=== PATIENT | female | born 1965 | race Caucasian/White ===

== ENCOUNTER 2021-07-07 19:21 | Observation (INO) ==
[2021-07-07] MEDS ORDERED: 0.9 % Sodium Chloride 1,000 ML IVC ONE (22:55)
[2021-07-07] MEDS ORDERED: cefTRIAXone 1,000 MG in 0.9 % Sodium Chloride Mini Bag 100 ML IVPB ONE (22:57)
[2021-07-07] MEDS ORDERED: Isovue-370 500 ML BOTTLE IVP ONE (23:13)
[2021-07-07 23:28] LABS: Bacteria,Urine Few per hpf (None-Few); Bilirubin,Urine Negative (Negative); Blood,Urine Negative (Negative); Clarity,Urine Clear (Clear); Color,Urine Light-Yellow (Yellow); Glucose,Urine (UA) Normal (Normal); Ketones,Urine Negative (Negative); Leukocyte Esterase,Urine Small (Negative); Mucus,Urine Few per lpf (None-Few); Nitrite,Urine Negative (Negative); Protein,Urine Negative (Neg-Trace); RBC,Urine 0-3 per hpf (0-3); Specific Gravity,Urine 1.007 (1.010-1.025); Squamous Epithelial Cell,Urine Few per hpf (None-Few); Urobilinogen,Urine Normal (Normal)
[2021-07-08 01:17] LABS: Basophils % 0.1 %; Eosinophils % 0.3 %; Hematocrit 27.4 % (35.3-44.9); Hemoglobin 8.9 g/dL (11.5-15.4); Immature Granulocytes % 0.8 % (0-4); Lymphocytes # 0.3 K/mcL (0.6-4.6); Lymphocytes % 4.2 %; Mean Corpuscular HGB Conc 32.5 g/dL (31.6-35.5); Mean Corpuscular Hemoglobin 32.8 pg (28.0-33.3); Mean Corpuscular Volume 101.1 fL (83.0-100.0); Mean Platelet Volume 11.6 fL (9.4-12.4); Monocytes # 0.5 K/mcL (0.0-1.3); Monocytes % 6.4 %; Neutrophils # 6.9 K/mcL (1.6-8.9); Platelet Count 141 K/mcL (140-400); Red Blood Count 2.71 M/mcL (3.82-4.97); Red Cell Distribution Width 14.3 % (11.5-14.5); Segmented Neutrophils % 88.2 %; White Blood Count 7.8 K/mcL (4.3-11.1)
[2021-07-08 01:23] LABS: INR 1.1
[2021-07-08 01:44] LABS: Alanine Aminotransferase 13 Units/L (7-52); Albumin 3.4 g/dL (3.5-5.7); Albumin/Globulin Ratio 1.4 (1.1-2.2); Alkaline Phosphatase 82 Units/L (34-104); Aspartate Amino Transferase 17 Units/L (13-39); BUN/Creatinine Ratio 15 (6-26); Bilirubin,Direct 0.2 mg/dL (0.0-0.2); Bilirubin,Indirect 0.1 mg/dL (0.0-1.0); Bilirubin,Total 0.3 mg/dL (0.3-1.0); Blood Urea Nitrogen 9 mg/dL (6-20); Calcium 8.9 mg/dL (8.6-10.3); Carbon Dioxide 26 mEq/L (23-29); Chloride 102 mEq/L (98-107); Globulin 2.5 g/dL (2.4-3.5); Glucose 94 mg/dL (70-105); Magnesium 1.8 mg/dL (1.6-2.6); Osmolality,Calculated 282 (280-300); Phosphorous 3.6 mg/dL (2.7-4.5); Potassium 3.3 mEq/L (3.5-5.1); Sodium 137 mEq/L (136-145); Total Protein 5.9 g/dL (6.4-8.9); Troponin I < 0.03 ng/mL (< 0.04); eGFR For African Americans > 60 (> 60); eGFR For Non-African Americans > 60 (> 60)
[2021-07-08 01:56] LABS: VBG HCO3 27 mEq/L (21-27); VBG PCO2 45 mmHg (41-51); VBG PH 7.38 pH Units (7.32-7.42); VBG PO2 61 mmHg (25-50)
[2021-07-08] MEDS ORDERED: Melatonin 3 MG TABLET PO PRN (04:34)
[2021-07-08] MEDS ORDERED: *HR* OxyCODONE Immed Rel 5 MG TABLET PO PRN ×2 (04:34→16:38)
[2021-07-08] MEDS ORDERED: Acetaminophen 325 MG TABLET PO PRN (04:34)
[2021-07-08] MEDS ORDERED: Ondansetron ODT 4 MG TAB.RAPDIS SL PRN (04:34)
[2021-07-08] MEDS ORDERED: Naloxone 0.4 MG/ML INJ IVP PRN (04:34)
[2021-07-08] MEDS ORDERED: Nicotine 14 MG PATCH.TD24 TD PRN (05:30)
[2021-07-08 06:20] LABS: Iron < 10 mcg/dL (50-170); Transferrin 144 mg/dL (203-362)
[2021-07-08] MEDS: *HR* HYDROcodone/Acet 5/325 mg TABLET PO PRN ×2 (06:37→14:12)
[2021-07-08 07:00] LABS: Folate 14.5 ng/mL (3.0-16.0)
[2021-07-08] MEDS: Piperacillin/Tazobactam 3.375 GM in 0.9 % Sodium Chloride Mini Bag 100 ML IVPB SCH ×2 (07:59→15:51)
[2021-07-08] MEDS ORDERED: *HR* Heparin 5,000 UNIT/ML VIAL SQ SCH (12:00)
[2021-07-08] MEDS ORDERED: Ringers Solution, Lactated 1,000 ML IVC ONE (12:50)
[2021-07-08] MEDS ORDERED: Ondansetron 4 MG/2 ML VIAL IVP PRN (16:41)
[2021-07-08] MEDS ORDERED: Ipratropium/Albuterol Neb 3 ML IH PRN (16:42)
[2021-07-08] MEDS ORDERED: polyethylene glycoL 3350 17 GM POWD.PACK PO PRN (16:43)
[2021-07-08] MEDS: Melatonin 3 MG TABLET PO SCH (20:45)
[2021-07-08] MEDS: Morphine Sulfate ER (12 HR) 15 MG TABLET.ER PO SCH (20:46)
[2021-07-08] MEDS: Sennosides/Docusate Sodium TABLET PO SCH (20:46)
[2021-07-08] MEDS: hydrOXYzine pamoate 25 MG CAPSULE PO SCH (20:46)
[2021-07-08] MEDS: *HR* Heparin 5,000 UNIT/ML VIAL SQ SCH (20:48)
[2021-07-09] MEDS: Piperacillin/Tazobactam 3.375 GM in 0.9 % Sodium Chloride Mini Bag 100 ML IVPB SCH ×4 (00:37→23:32)
[2021-07-09 00:56] LABS: Basophils % 0.1 %; Eosinophils % 0.3 %; Mean Corpuscular Volume 101.6 fL (83.0-100.0); Red Cell Distribution Width 13.9 % (11.5-14.5)
[2021-07-09 00:58] LABS: Hematocrit 25.1 % (35.3-44.9); Hemoglobin 8.1 g/dL (11.5-15.4); Immature Granulocytes % 1.1 % (0-4); Immature Platelets 7.5 % (1.1-6.1); Lymphocytes # 0.3 K/mcL (0.6-4.6); Lymphocytes % 3.3 %; Mean Corpuscular HGB Conc 32.3 g/dL (31.6-35.5); Mean Corpuscular Hemoglobin 32.8 pg (28.0-33.3); Mean Platelet Volume 10.9 fL (9.4-12.4); Monocytes # 0.3 K/mcL (0.0-1.3); Neutrophils # 6.9 K/mcL (1.6-8.9); Platelet Count 133 K/mcL (140-400); Red Blood Count 2.47 M/mcL (3.82-4.97); Segmented Neutrophils % 91.2 %; White Blood Count 7.6 K/mcL (4.3-11.1)
[2021-07-09 01:11] LABS: BUN/Creatinine Ratio 13 (6-26); Blood Urea Nitrogen 7 mg/dL (6-20); Calcium 8.6 mg/dL (8.6-10.3); Carbon Dioxide 28 mEq/L (23-29); Chloride 104 mEq/L (98-107); Glucose 90 mg/dL (70-105); Magnesium 1.7 mg/dL (1.6-2.6); Osmolality,Calculated 282 (280-300); Potassium 3.6 mEq/L (3.5-5.1); Sodium 137 mEq/L (136-145); eGFR For African Americans > 60 (> 60); eGFR For Non-African Americans > 60 (> 60)
[2021-07-09 01:29] LABS: Thyroid Stimulating Hormone 4.43 mcIU/mL (0.340-5.600)
[2021-07-09] MEDS: *HR* Heparin 5,000 UNIT/ML VIAL SQ SCH ×3 (04:28→20:50)
[2021-07-09] MEDS: Vitamin B Complex/Vit C/Vit E 1 EACH TABLET PO SCH (08:10)
[2021-07-09] MEDS: Morphine Sulfate ER (12 HR) 15 MG TABLET.ER PO SCH ×2 (08:10→20:50)
[2021-07-09] MEDS: Sennosides/Docusate Sodium TABLET PO SCH ×2 (08:11→20:49)
[2021-07-09] MEDS: FLUoxetine HCl 10 MG CAPSULE PO SCH (08:11)
[2021-07-09] MEDS ORDERED: Vancomycin 750 MG VIAL ONE (13:06)
[2021-07-09] MEDS ORDERED: Acetaminophen 325 MG TABLET PO PRN (17:07)
[2021-07-09] MEDS: hydrOXYzine pamoate 25 MG CAPSULE PO SCH (20:50)
[2021-07-09] MEDS: Melatonin 3 MG TABLET PO SCH (20:50)
[2021-07-10] MEDS: *HR* Heparin 5,000 UNIT/ML VIAL SQ SCH ×2 (05:05→06:16)
[2021-07-10 05:33] LABS: Basophils % 0.2 %; Eosinophils # 0.1 K/mcL (0.0-0.6); Eosinophils % 0.9 %; Hemoglobin 9.1 g/dL (11.5-15.4); Immature Granulocytes % 0.5 % (0-4); Lymphocytes # 0.3 K/mcL (0.6-4.6); Lymphocytes % 4.3 %; Mean Corpuscular HGB Conc 32.5 g/dL (31.6-35.5); Mean Corpuscular Volume 101.4 fL (83.0-100.0); Mean Platelet Volume 10.7 fL (9.4-12.4); Monocytes # 0.4 K/mcL (0.0-1.3); Monocytes % 6.3 %; Neutrophils # 5.1 K/mcL (1.6-8.9); Platelet Count 162 K/mcL (140-400); Red Blood Count 2.76 M/mcL (3.82-4.97); Red Cell Distribution Width 13.8 % (11.5-14.5); Segmented Neutrophils % 87.8 %; White Blood Count 5.8 K/mcL (4.3-11.1)
[2021-07-10 05:52] LABS: BUN/Creatinine Ratio 7 (6-26); Blood Urea Nitrogen 4 mg/dL (6-20); Calcium 8.9 mg/dL (8.6-10.3); Carbon Dioxide 29 mEq/L (23-29); Chloride 104 mEq/L (98-107); Glucose 92 mg/dL (70-105); Magnesium 1.9 mg/dL (1.6-2.6); Osmolality,Calculated 285 (280-300); Potassium 3.5 mEq/L (3.5-5.1); Sodium 139 mEq/L (136-145); eGFR For African Americans > 60 (> 60); eGFR For Non-African Americans > 60 (> 60)
[2021-07-10 06:51] VITALS: BP 121/71; PULSE 75; TEMP 97.7; O2SAT 95
[2021-07-10] MEDS ORDERED: Isovue-370 500 ML BOTTLE IVP ONE (08:00)
[2021-07-10] MEDS: Piperacillin/Tazobactam 3.375 GM in 0.9 % Sodium Chloride Mini Bag 100 ML IVPB SCH (08:57)
[2021-07-10] MEDS: FLUoxetine HCl 10 MG CAPSULE PO SCH (09:00)
[2021-07-10] MEDS ORDERED: Nicotine 14 MG PATCH.TD24 TD SCH (09:00)
[2021-07-10] MEDS: Vitamin B Complex/Vit C/Vit E 1 EACH TABLET PO SCH (09:00)
[2021-07-10] MEDS: Morphine Sulfate ER (12 HR) 15 MG TABLET.ER PO SCH (09:00)
[2021-07-10] MEDS: Sennosides/Docusate Sodium TABLET PO SCH (09:00)
== END 2021-07-10 12:33 | disposition home health service (06) ==
LOC: EMEROOARM 19:21 → 2ANU 19:21 → SUATTDRO 07-08 04:45 → 2ANU 07-08 07:08
PROVIDERS: ADMIT Internal Medicine; ATTEND Pharmacist

== ENCOUNTER 2021-08-24 18:00 | Inpatient (IN) ==
[2021-08-24] MEDS ORDERED: 0.9 % Sodium Chloride 1,000 ML IVC ONE (21:34)
[2021-08-24 22:34] LABS: Basophils % 0.1 %; Hematocrit 38.5 % (35.3-44.9); Hemoglobin 12.5 g/dL (11.5-15.4); Immature Granulocytes % 0.7 % (0-4); Lymphocytes # 0.2 K/mcL (0.6-4.6); Lymphocytes % 2.3 %; Mean Corpuscular HGB Conc 32.5 g/dL (31.6-35.5); Mean Corpuscular Hemoglobin 32.5 pg (28.0-33.3); Mean Platelet Volume 10.2 fL (9.4-12.4); Monocytes # 0.2 K/mcL (0.0-1.3); Monocytes % 2.3 %; Platelet Count 112 K/mcL (140-400); Red Blood Count 3.85 M/mcL (3.82-4.97); Red Cell Distribution Width 12.8 % (11.5-14.5); Segmented Neutrophils % 94.6 %; White Blood Count 10.6 K/mcL (4.3-11.1)
[2021-08-24 22:57] LABS: Alanine Aminotransferase 17 Units/L (7-52); Albumin 3.6 g/dL (3.5-5.7); Albumin/Globulin Ratio 1.8 (1.1-2.2); Alkaline Phosphatase 73 Units/L (34-104); Aspartate Amino Transferase 17 Units/L (13-39); BUN/Creatinine Ratio 28 (6-26); Bilirubin,Total 0.7 mg/dL (0.3-1.0); Blood Urea Nitrogen 16 mg/dL (6-20); Calcium 8.5 mg/dL (8.6-10.3); Carbon Dioxide 24 mEq/L (23-29); Chloride 110 mEq/L (98-107); Glucose 114 mg/dL (70-105); Osmolality,Calculated 290 (280-300); Potassium 3.9 mEq/L (3.5-5.1); Sodium 139 mEq/L (136-145); Total Protein 5.6 g/dL (6.4-8.9); eGFR For African Americans > 60 (> 60); eGFR For Non-African Americans > 60 (> 60)
[2021-08-25] MEDS ORDERED: Pantoprazole 40 MG VIAL IVP ONE (00:10)
[2021-08-25] MEDS ORDERED: Gadolinium Contrast Agent (WT Based) IV PRN ×3 (00:26→12:42)
[2021-08-25] MEDS ORDERED: Acetaminophen 325 MG TABLET PO PRN (00:36)
[2021-08-25] MEDS ORDERED: Naloxone 0.4 MG/ML INJ IVP PRN (00:36)
[2021-08-25] MEDS ORDERED: Ondansetron 4 MG/2 ML VIAL IVP PRN (00:36)
[2021-08-25] MEDS: Morphine Sulfate ER (12 HR) 15 MG TABLET.ER PO SCH ×2 (02:40→15:01)
[2021-08-25 03:42] LABS: Basophils % 0.1 %; Hematocrit 31.4 % (35.3-44.9); Immature Granulocytes % 0.6 % (0-4); Lymphocytes # 0.3 K/mcL (0.6-4.6); Lymphocytes % 3.7 %; Mean Corpuscular HGB Conc 34.1 g/dL (31.6-35.5); Mean Corpuscular Hemoglobin 33.5 pg (28.0-33.3); Mean Corpuscular Volume 98.4 fL (83.0-100.0); Mean Platelet Volume 10.1 fL (9.4-12.4); Monocytes # 0.2 K/mcL (0.0-1.3); Monocytes % 2.9 %; Neutrophils # 7.3 K/mcL (1.6-8.9); Platelet Count 103 K/mcL (140-400); Red Blood Count 3.19 M/mcL (3.82-4.97); Red Cell Distribution Width 12.7 % (11.5-14.5); Segmented Neutrophils % 92.7 %; White Blood Count 7.9 K/mcL (4.3-11.1)
[2021-08-25 03:47] LABS: Hemoglobin 10.7 g/dL (11.5-15.4)
[2021-08-25 03:54] LABS: INR 1.1
[2021-08-25 03:57] LABS: Albumin/Globulin Ratio 1.8 (1.1-2.2); Bilirubin,Direct 0.1 mg/dL (0.0-0.2); Bilirubin,Indirect 0.6 mg/dL (0.0-1.0); Bilirubin,Total 0.7 mg/dL (0.3-1.0); Globulin 1.7 g/dL (2.4-3.5); Total Protein 4.7 g/dL (6.4-8.9)
[2021-08-25 03:58] LABS: BUN/Creatinine Ratio 23 (6-26); Blood Urea Nitrogen 13 mg/dL (6-20); Calcium 8.1 mg/dL (8.6-10.3); Carbon Dioxide 24 mEq/L (23-29); Chloride 112 mEq/L (98-107); Glucose 97 mg/dL (70-105); Magnesium 1.8 mg/dL (1.6-2.6); Osmolality,Calculated 290 (280-300); Phosphorous 2.2 mg/dL (2.7-4.5); Potassium 3.7 mEq/L (3.5-5.1); Sodium 140 mEq/L (136-145); eGFR For African Americans > 60 (> 60); eGFR For Non-African Americans > 60 (> 60)
[2021-08-25 04:21] LABS: Folate 18.6 ng/mL (3.0-16.0)
[2021-08-25] MEDS ORDERED: GADOBUTROL 30 MMOL/30 ML VIAL IVP ONE (07:12)
[2021-08-25] MEDS: Pantoprazole 40 MG VIAL IVP SCH (08:11)
[2021-08-25] MEDS: Nicotine 14 MG PATCH.TD24 TD SCH (08:12)
[2021-08-25] MEDS: FLUoxetine HCl 10 MG CAPSULE PO SCH (08:12)
[2021-08-25] MEDS: *HR* OxyCODONE Immed Rel 5 MG TABLET PO PRN (08:14)
[2021-08-25] MEDS: Multivit/Ca/Min/Fe/FA 1 TAB TABLET PO SCH (08:30)
[2021-08-25 09:40] LABS: Bacteria,Urine Few per hpf (None-Few); Bilirubin,Urine Negative (Negative); Blood,Urine Trace (Negative); Clarity,Urine Turbid (Clear); Color,Urine Light-Yellow (Yellow); Glucose,Urine (UA) Normal (Normal); Ketones,Urine Negative (Negative); Leukocyte Esterase,Urine Negative (Negative); Mucus,Urine Few per lpf (None-Few); Nitrite,Urine Negative (Negative); Protein,Urine Negative (Neg-Trace); RBC,Urine 0-3 per hpf (0-3); Specific Gravity,Urine 1.017 (1.010-1.025); Squamous Epithelial Cell,Urine Few per hpf (None-Few); Urobilinogen,Urine Normal (Normal)
[2021-08-25] MEDS ORDERED: Perflutren Lipid Microsphere 1.3 ML in 0.9 % Sodium Chloride 8.7 ML IVP PRN (13:24)
[2021-08-25] MEDS: Nystatin SUSP 5 ML UD.LIQ PO SCH ×2 (17:36→21:39)
[2021-08-25] MEDS: Melatonin 3 MG TABLET PO SCH (21:39)
[2021-08-25] MEDS: hydrOXYzine pamoate 25 MG CAPSULE PO SCH (21:40)
[2021-08-26] MEDS: Morphine Sulfate ER (12 HR) 15 MG TABLET.ER PO SCH ×2 (02:22→15:09)
[2021-08-26] MEDS: *HR* OxyCODONE Immed Rel 5 MG TABLET PO PRN (05:13)
[2021-08-26 05:46] LABS: Hemoglobin 10.3 g/dL (11.5-15.4)
[2021-08-26 05:48] LABS: Basophils % 0.2 %; Hematocrit 30.6 % (35.3-44.9); Immature Granulocytes % 0.7 % (0-4); Immature Platelets 2.7 % (1.1-6.1); Lymphocytes # 0.2 K/mcL (0.6-4.6); Lymphocytes % 3.6 %; Mean Corpuscular HGB Conc 33.7 g/dL (31.6-35.5); Mean Corpuscular Hemoglobin 32.7 pg (28.0-33.3); Mean Corpuscular Volume 97.1 fL (83.0-100.0); Mean Platelet Volume 10.2 fL (9.4-12.4); Monocytes # 0.1 K/mcL (0.0-1.3); Monocytes % 2.2 %; Platelet Count 101 K/mcL (140-400); Red Blood Count 3.15 M/mcL (3.82-4.97); Red Cell Distribution Width 12.9 % (11.5-14.5); Segmented Neutrophils % 93.3 %; White Blood Count 5.5 K/mcL (4.3-11.1)
[2021-08-26 05:59] LABS: Neutrophils # 5.1 K/mcL (1.6-8.9)
[2021-08-26 07:01] LABS: BUN/Creatinine Ratio 23 (6-26); Blood Urea Nitrogen 14 mg/dL (6-20); Calcium 8.6 mg/dL (8.6-10.3); Carbon Dioxide 23 mEq/L (23-29); Chloride 109 mEq/L (98-107); Glucose 127 mg/dL (70-105); Osmolality,Calculated 292 (280-300); Sodium 140 mEq/L (136-145); eGFR For African Americans > 60 (> 60); eGFR For Non-African Americans > 60 (> 60)
[2021-08-26] MEDS: Nicotine 14 MG PATCH.TD24 TD SCH (07:57)
[2021-08-26] MEDS: Multivit/Ca/Min/Fe/FA 1 TAB TABLET PO SCH (07:59)
[2021-08-26] MEDS: FLUoxetine HCl 10 MG CAPSULE PO SCH (07:59)
[2021-08-26] MEDS: Nystatin SUSP 5 ML UD.LIQ PO SCH ×4 (07:59→21:04)
[2021-08-26] MEDS: Pantoprazole 40 MG VIAL IVP SCH (07:59)
[2021-08-26] MEDS: Clotrimazole 1% CRM 15 GM TUBE TP SCH ×2 (13:11→21:05)
[2021-08-26] MEDS: Melatonin 3 MG TABLET PO SCH (21:04)
[2021-08-26] MEDS: hydrOXYzine pamoate 25 MG CAPSULE PO SCH (21:04)
[2021-08-27] MEDS: Morphine Sulfate ER (12 HR) 15 MG TABLET.ER PO SCH ×3 (02:10→16:09)
[2021-08-27] MEDS: Nystatin SUSP 5 ML UD.LIQ PO SCH ×4 (10:40→20:24)
[2021-08-27] MEDS: FLUoxetine HCl 10 MG CAPSULE PO SCH (10:41)
[2021-08-27] MEDS: Pantoprazole 40 MG VIAL IVP SCH (10:41)
[2021-08-27] MEDS: Multivit/Ca/Min/Fe/FA 1 TAB TABLET PO SCH (10:41)
[2021-08-27] MEDS: Nicotine 14 MG PATCH.TD24 TD SCH (10:41)
[2021-08-27] MEDS: Clotrimazole 1% CRM 15 GM TUBE TP SCH (10:42)
[2021-08-27] MEDS: hydrOXYzine pamoate 25 MG CAPSULE PO SCH (20:24)
[2021-08-27] MEDS: Melatonin 3 MG TABLET PO SCH (20:24)
[2021-08-28] MEDS: Clotrimazole 1% CRM 15 GM TUBE TP SCH ×2 (00:50→08:22)
[2021-08-28] MEDS: Morphine Sulfate ER (12 HR) 15 MG TABLET.ER PO SCH ×2 (03:22→16:46)
[2021-08-28 05:30] LABS: Basophils % 0.2 %; Hematocrit 35.7 % (35.3-44.9); Immature Granulocytes % 1.1 % (0-4); Lymphocytes # 0.3 K/mcL (0.6-4.6); Lymphocytes % 4.1 %; Mean Corpuscular HGB Conc 34.7 g/dL (31.6-35.5); Mean Corpuscular Hemoglobin 33.5 pg (28.0-33.3); Mean Corpuscular Volume 96.5 fL (83.0-100.0); Mean Platelet Volume 10.3 fL (9.4-12.4); Monocytes # 0.2 K/mcL (0.0-1.3); Monocytes % 2.8 %; Neutrophils # 5.9 K/mcL (1.6-8.9); Platelet Count 118 K/mcL (140-400); Red Cell Distribution Width 12.6 % (11.5-14.5); Segmented Neutrophils % 91.8 %; White Blood Count 6.4 K/mcL (4.3-11.1)
[2021-08-28 05:31] LABS: Hemoglobin 12.4 g/dL (11.5-15.4)
[2021-08-28 06:00] LABS: BUN/Creatinine Ratio 34 (6-26); Blood Urea Nitrogen 20 mg/dL (6-20); Calcium 8.9 mg/dL (8.6-10.3); Carbon Dioxide 26 mEq/L (23-29); Chloride 103 mEq/L (98-107); Glucose 129 mg/dL (70-105); Osmolality,Calculated 290 (280-300); Phosphorous 3.5 mg/dL (2.7-4.5); Potassium 3.9 mEq/L (3.5-5.1); Sodium 138 mEq/L (136-145); eGFR For African Americans > 60 (> 60); eGFR For Non-African Americans > 60 (> 60)
[2021-08-28 07:50] VITALS: O2SAT 96
[2021-08-28] MEDS: Multivit/Ca/Min/Fe/FA 1 TAB TABLET PO SCH (08:21)
[2021-08-28] MEDS: FLUoxetine HCl 10 MG CAPSULE PO SCH (08:21)
[2021-08-28] MEDS: Nystatin SUSP 5 ML UD.LIQ PO SCH ×3 (08:21→17:27)
[2021-08-28] MEDS: Pantoprazole 40 MG VIAL IVP SCH (08:23)
[2021-08-28] MEDS: Nicotine 14 MG PATCH.TD24 TD SCH (08:23)
[2021-08-28 11:28] VITALS: BP 118/89; PULSE 72; TEMP 97.9
[2021-08-28] MEDS ORDERED: *HR* OxyCODONE Immed Rel 5 MG TABLET PO SCH (14:59)
== END 2021-08-28 18:18 | disposition hospice, home (50) | DRG 54 ==
LOC: 3NENU 18:00 → EMEROOARM 18:00 → SUATTDRO 08-25 00:37 → 3NENU 08-25 01:33
PROVIDERS: ADMIT Internal Medicine; ATTEND Internal Medicine